=== PATIENT | male | born 1955 | race Two or more races ===

== ENCOUNTER 2023-04-27 07:22 | Inpatient (IN) | payer MEDICARE, OTHER ==
[~2023-04-27] VITALS: Ht 175.3 cm; Wt 90.7 kg
[2023-04-27] MEDS ORDERED: ASPIRIN 325 MG TABLET PO ONE (08:00)
[2023-04-27] MEDS ORDERED: ASPIRIN 325 MG TABLET ONE (08:06)
[2023-04-27 08:22] LABS: BASOPHILS # (AUTO) 0.1 K/uL (0.0-0.2); BASOPHILS % (AUTO) 0.7 % (0.0-2.0); EOSINOPHILS # (AUTO) 0.1 K/uL (0.0-0.7); EOSINOPHILS % (AUTO) 0.8 % (0.0-6.0); HEMATOCRIT 47 % (39-51); HEMOGLOBIN 15.6 g/dL (13.5-17.5); LYMPHOCYTES # (AUTO) 2.1 K/uL (0.8-4.8); LYMPHOCYTES % (AUTO) 14.8 % (20.0-44.0); MEAN CORPUSCULAR HEMOGLOBIN 29 PG (26.0-33.0); MEAN CORPUSCULAR HGB CONC 33 g/dl (31.0-36.0); MEAN CORPUSCULAR VOLUME 86 fL (80-96); MONOCYTES # (AUTO) 0.6 K/uL (0.1-1.30); MONOCYTES % (AUTO) 4.4 % (2.0-12.0); NEUTROPHILS # (AUTO) 11.5 K/uL (1.8-8.9); NEUTROPHILS % (AUTO) 79.3 % (43.0-81.0); PLATELET COUNT (AUTO) 287 K/uL (150-450); RED BLOOD CELL COUNT(AUTO) 5.45 MIL/uL (4.5-6.0); RED CELL DISTRIBUTION WIDTH 15.6 % (11.5-15.0); WHITE BLOOD COUNT (AUTO) 14.4 K/uL (4.3-11.0)
[2023-04-27 08:34] LABS: CALCIUM, SERUM 9.3 mg/dL (8.5-10.1); CARBON DIOXIDE 26 mmol/L (21-32); CHLORIDE 97 mmol/L (98-107); CREATININE 0.8 mg/dL (0.6-1.3); GLUCOSE 202 mg/dL (74-106); POTASSIUM 3.2 mmol/L (3.5-5.1); SODIUM SERUM 133 mmol/L (136-145); UREA NITROGEN, BLOOD 14 mg/dL (7-18)
[2023-04-27 09:03] LABS: ALANINE AMINOTRANSFERASE 35 U/L (12-78); ALBUMIN 4.6 g/dL (3.4-5.0); ALKALINE PHOSPHATASE 104 U/L (46-116); ASPARTATE AMINOTRANSFERASE 23 U/L (15-37); BILIRUBIN,DIRECT 0.2 mg/dL (0.0-0.2); BILIRUBIN,TOTAL 0.8 mg/dL (0.2-1.0); NT-PRO BNP 64 pg/mL (0-125); TOTAL PROTEIN, SERUM 8.8 g/dL (6.4-8.2)
[2023-04-27] MEDS ORDERED: CARVEDILOL 6.25 MG TABLET PO SCH (09:30)
[2023-04-27] MEDS: VALSARTAN 80 MG TABLET PO SCH (09:30)
[2023-04-27] MEDS ORDERED: ATORVASTATIN 10 MG TABLET PO SCH (09:30)
[2023-04-27] MEDS ORDERED: PANTOPRAZOLE 40 MG TABLET.DR PO SCH (09:30)
[2023-04-27] MEDS ORDERED: ATOR40TA PO (09:57)
[2023-04-27] MEDS ORDERED: AMLO-212 PO (09:57)
[2023-04-27] MEDS ORDERED: CARV6.252 PO (09:57)
[2023-04-27] MEDS ORDERED: LISI20TA30 PO (09:57)
[2023-04-27] MEDS ORDERED: IOHEXOL-350 100 ML VIAL IV ONE (10:16)
[2023-04-27] MEDS ORDERED: IV NS 0.9% 250 ML IV ONE (10:18)
[2023-04-27] MEDS ORDERED: CT SWABBABLE VALVE TRANS SET 1 EA INFUS.SET MC ONE (10:18)
[2023-04-27] MEDS ORDERED: NITROGLYCERIN 0.4 MG/TAB BOTTLE ONE (10:19)
[2023-04-27] MEDS: POTASSIUM CHLORIDE 20 MEQ TAB.PRT.SR PO SCH ×2 (10:35→11:35)
[2023-04-27] MEDS ORDERED: NITROGLYCERIN 0.4 MG/TAB BOTTLE SL ONE ×2 (11:00)
[2023-04-27] MEDS ORDERED: HYDROCODONE/APAP 5/325MG TABLET PO PRN (11:30)
[2023-04-27] MEDS ORDERED: Z GUARD REMEDY 4 OZ OINT TP PRN (11:30)
[2023-04-27] MEDS: ASPIRIN 81 MG TAB.CHEW PO SCH (11:30)
[2023-04-27] MEDS ORDERED: TEMAZEPAM 15 MG CAPSULE PO PRN (11:30)
[2023-04-27] MEDS ORDERED: MAGNESIUM HYDROXIDE 30 ML UDC PO PRN (11:30)
[2023-04-27] MEDS ORDERED: ACETAMINOPHEN 325 MG TABLET PO PRN (11:30)
[2023-04-27] MEDS ORDERED: ONDANSETRON HCL/PF 4 MG/2 ML VIAL IVP PRN (11:30)
[2023-04-27] MEDS ORDERED: MAG HYDROX/AL HYDROX/SIMETH 30 ML UDC PO PRN (11:30)
[2023-04-27] MEDS: CARVEDILOL 6.25 MG TABLET PO SCH ×2 (11:33→21:05)
[2023-04-27] MEDS ORDERED: ENOXAPARIN SODIUM 100 MG/ML DISP.SYRIN SQ ONE (11:38)
[2023-04-27] MEDS ORDERED: CARVEDILOL 6.25 MG TABLET ONE (11:38)
[2023-04-27] MEDS ORDERED: POTASSIUM CHLORIDE 20 MEQ TAB.PRT.SR PO ONE ×2 (11:39→12:15)
[2023-04-27] MEDS ORDERED: ASPIRIN 81 MG TAB.CHEW ONE (11:39)
[2023-04-27] MEDS ORDERED: ATORVASTATIN 10 MG TABLET ONE (11:39)
[2023-04-27] MEDS ORDERED: PANTOPRAZOLE 40 MG TABLET.DR PO ONE (11:39)
[2023-04-27] MEDS ORDERED: ASPI-1169 PO (11:47)
[2023-04-27] MEDS ORDERED: NITR0.4T48 SL (11:47)
[2023-04-27] MEDS: ENOXAPARIN SODIUM 100 MG/ML DISP.SYRIN SQ SCH ×2 (12:00→21:04)
[2023-04-27] MEDS ORDERED: MORPHINE SULFATE INJ 4 MG/ML DISP.SYRIN IV PRN (12:00)
[2023-04-27 12:24] LABS: MAGNESIUM 2.1 mg/dL (1.8-2.4); PHOSPHORUS 2.2 mg/dL (2.5-4.9)
[2023-04-27 15:12] VITALS: O2SAT 99
[2023-04-27] MEDS ORDERED: NEUTRA PHOS 1 POWD.PACKET PO ONE (21:00)
[2023-04-28] VITALS: BP 97/58; TEMP 98.5; O2SAT 95
[2023-04-28 03:44] VITALS: BP 99/59; TEMP 98.2; O2SAT 95
[2023-04-28 07:21] LABS: BASOPHILS % (AUTO) 0.3 % (0.0-2.0); EOSINOPHILS # (AUTO) 0.4 K/uL (0.0-0.7); EOSINOPHILS % (AUTO) 2.9 % (0.0-6.0); HEMATOCRIT 45 % (39-51); HEMOGLOBIN 14.8 g/dL (13.5-17.5); LYMPHOCYTES # (AUTO) 3.5 K/uL (0.8-4.8); LYMPHOCYTES % (AUTO) 25.2 % (20.0-44.0); MEAN CORPUSCULAR HEMOGLOBIN 28 PG (26.0-33.0); MEAN CORPUSCULAR HGB CONC 33 g/dl (31.0-36.0); MEAN CORPUSCULAR VOLUME 85 fL (80-96); MONOCYTES # (AUTO) 1.1 K/uL (0.1-1.30); MONOCYTES % (AUTO) 8.1 % (2.0-12.0); NEUTROPHILS # (AUTO) 8.7 K/uL (1.8-8.9); NEUTROPHILS % (AUTO) 63.5 % (43.0-81.0); PLATELET COUNT (AUTO) 261 K/uL (150-450); RED BLOOD CELL COUNT(AUTO) 5.26 MIL/uL (4.5-6.0); RED CELL DISTRIBUTION WIDTH 15.7 % (11.5-15.0); WHITE BLOOD COUNT (AUTO) 13.7 K/uL (4.3-11.0)
[2023-04-28] MEDS ORDERED: PANTOPRAZOLE 40 MG TABLET.DR PO SCH (07:30)
[2023-04-28 08:10] LABS: CALCIUM, SERUM 8.6 mg/dL (8.5-10.1); PHOSPHORUS 4.3 mg/dL (2.5-4.9); POTASSIUM 3.2 mmol/L (3.5-5.1)
[2023-04-28] MEDS: ASPIRIN 81 MG TAB.CHEW PO SCH (08:20)
[2023-04-28] MEDS: VALSARTAN 80 MG TABLET PO SCH (08:21)
[2023-04-28 08:22] VITALS: BP 129/74
[2023-04-28] MEDS: CARVEDILOL 6.25 MG TABLET PO SCH (08:22)
[2023-04-28 08:28] LABS: THYROID STIMULATING HORMONE 1.142 uIU/mL (0.358-3.74)
[2023-04-28] MEDS: ENOXAPARIN SODIUM 100 MG/ML DISP.SYRIN SQ SCH (08:28)
[2023-04-28] MEDS ORDERED: POTASSIUM CHLORIDE 20 MEQ TAB.PRT.SR PO ONE (08:30)
[2023-04-28] MEDS ORDERED: ATORVASTATIN 40 MG TABLET PO SCH (09:00)
[2023-04-28] MEDS ORDERED: AMLODIPINE BESYLATE 5 MG TABLET PO SCH (09:00)
[2023-04-28] MEDS ORDERED: LISINOPRIL (20MG) 20 MG TABLET PO SCH (09:00)
[2023-04-28] MEDS ORDERED: POTASSIUM CHLORIDE 20 MEQ TAB.PRT.SR PO SCH (10:30)
[2023-04-30 05:10] LABS: *SPE ALBUMIN 3.6 g/dL (2.9-4.4); *SPE ALPHA-1-GLOBULIN 0.3 g/dL (0.0-0.4); *SPE ALPHA-2-GLOBULIN 0.9 g/dL (0.4-1.0); *SPE BETA GLOBULIN 1.1 g/dL (0.7-1.3); *SPE GLOBULIN, TOTAL 3.5 g/dL (2.2-3.9); *SPE M-SPIKE Not Observed g/dL (Not Observed); *SPE PROTEIN TOTAL 7.1 g/dL (6.0-8.5); *SPEGAMMA GLOBULIN 1.1 g/dL (0.4-1.8)
== END 2023-04-28 11:30 | disposition home or self-care (01) | DRG 303 ==
LOC: ER 07:32 → TRANSITION 11:19 → TELE 16:51
PROVIDERS: ADMIT Nurse Practitioner Acute Care; ATTEND Nurse Practitioner Acute Care
DX: I25.10 Atherosclerotic heart disease of native coronary artery without angina pectoris (principal); I16.0 Hypertensive urgency; E78.5 Hyperlipidemia, unspecified; E87.6 Hypokalemia; I10 Essential (primary) hypertension; I25.2 Old myocardial infarction; Z79.82 Long term (current) use of aspirin; F17.210 Nicotine dependence, cigarettes, uncomplicated; E11.9 Type 2 diabetes mellitus without complications; Z71.6 Tobacco abuse counseling; Z95.5 Presence of coronary angioplasty implant and graft
CPT/HCPCS: 36415; 71045-TC; 75574; 76700-TC; 80048-TC; 80061-TC; 80076-TC; 83690-TC; 83735-TC; 83880; 84100-TC; 84155; 84165; 84443-TC; 84484-TC; 85025-TC; 93307-TC; G0378; J1650; J7030; J7050; Q9967